=== PATIENT | male | born 1995 | race Caucasian/White ===

== ENCOUNTER → 2016-04-17 | Outpatient (CLI) | payer BC ==
--- NOTE | 2016-04-17 16:08 | KCIC ---
PROCEDURE Two-view left wrist dated 04/17/2016. HISTORY Left wrist pain. Recent fall 1/2 weeks ago. TECHNIQUE Two views obtained. COMPARISON none FINDINGS Subtle radiolucent lines extend to the deep articular margin of the distal radius. There is also slight cortical step-off near the base of the radial styloid. No significant articular surface depression. The distal ulna is intact. Borderline widening of the scapholunate distance. No apparent scaphoid fracture. IMPRESSION Suspected nondisplaced intra-articular fracture of the distal radius. Electronically signed by: Tyler Garcia (Apr 17, 2016 16:07:04)
== END | disposition home or self-care (01) ==
LOC: KCIC 15:26
PROVIDERS: ATTEND Orthopaedic Surgery Sports Medicine
DX: M25.532 Pain in left wrist (principal); Z91.81 History of falling
CPT/HCPCS: 73100

== ENCOUNTER → 2016-04-24 | Outpatient (CLI) | payer BC ==
--- NOTE | 2016-04-24 16:12 | KCIC ---
PROCEDURE Two views left wrist. HISTORY Persistent pain, fall 10 days ago. TECHNIQUE Two views of the left wrist are submitted for review. COMPARISON April 17, 2016. FINDINGS Distal radial fracture extending into the radiocarpal joint again is noted, alignment of fragments unchanged. No new fracture is identified. There is no dislocation. IMPRESSION Redemonstrated nondisplaced acute traumatic fracture of the distal radius extending into the radial carpal joint. Electronically signed by: Srini Brooke MD (Apr 24, 2016 16:11:22)
== END | disposition home or self-care (01) ==
LOC: KCIC 15:17
PROVIDERS: ATTEND Orthopaedic Surgery Sports Medicine
DX: M25.532 Pain in left wrist (principal); S62.102A Fracture of unspecified carpal bone, left wrist, initial encounter for closed fracture; W19.XXXA Unspecified fall, initial encounter; Y93.89 Activity, other specified; Y92.89 Other specified places as the place of occurrence of the external cause; Y99.8 Other external cause status
CPT/HCPCS: 73100